=== PATIENT | female | born 1960 | race Caucasian/White ===

== ENCOUNTER 2017-02-12 07:37 | Day surgery (SDC) | payer OTHER ==
[2017-02-11 09:22] VITALS: BMI 47.8
[2017-02-12] MEDS ORDERED: BUPIVACAINE HCL/PF 2.5 MG/ML - 30 ML VIAL IJ ONE (08:28)
[2017-02-12] MEDS ORDERED: EPINEPHrine 1:1,000 1 MG/1 ML - 30ML VIAL (INJECTION) ONE (08:48)
[2017-02-12] MEDS ORDERED: ONDANSETRON 4 MG/2 ML VIAL ONE (10:36)
[2017-02-12] MEDS ORDERED: MIDAZOLAM HCL 2 MG/2 ML SINGLE DOSE VIAL ONE (10:36)
[2017-02-12] MEDS ORDERED: PROPOFOL 20 ML ONE (10:36)
[2017-02-12] MEDS ORDERED: DEXAMETHASONE SOD PHOSPHATE 4 MG/1 ML VIAL ONE (10:36)
[2017-02-12] MEDS ORDERED: LIDOCAINE HCL/PF 2% SDV 5ML VIAL ONE (10:36)
[2017-02-12] MEDS ORDERED: SUCCINYLCHOLINE CHLORIDE 200 MG/10 ML VIAL ONE (10:36)
[2017-02-12] MEDS ORDERED: methylPREDNISolone ACET (DEPO) 40 MG/1 ML VIAL ONE (11:36)
[2017-02-12] MEDS ORDERED: PROMETHAZINE HCL 25 MG/1 ML VIAL IVPUSH PRN (12:01)
[2017-02-12] MEDS ORDERED: ONDANSETRON 4 MG/2 ML VIAL IVPUSH PRN (12:01)
[2017-02-12] MEDS ORDERED: oxyCODONE HCL 5 MG TABLET PO PRN (12:01)
--- NOTE | 2017-02-12 12:01 | OP ---
Operative Note - Note: Operative Date: 02/12/17 Pre-Operative Diagnosis: Right knee partial medial meniscus tear. Right knee DJD Operation: 1. Surgical arthroscopy right knee. 2. Partial medial meniscectomy right knee. Right thigh tourniquet: 250mmHg x 23 minutes Findings: 1. Partial medial meniscus tear 2. 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
[2017-02-12] MEDS ORDERED: LACTATED RINGERS SOLUTION 1,000 ML IV SCH (12:15)
[2017-02-12] MEDS ORDERED: PATIENT'S OWN MEDICATION (NON-FORMULARY) (Cholecalciferol (Vitamin D3) [Vitamin D3] 50,000 PO SCH (12:15)
[2017-02-12] MEDS ORDERED: PATIENT'S OWN MEDICATION (NON-FORMULARY) (Ibandronate Sodium [Ibandronate Sodium] 150 MG) PO SCH (12:15)
[2017-02-12 15:45] VITALS: BP 128/77; PULSE 71; TEMP 97.9
--- NOTE | 2017-02-14 23:08 | OP ---
DATE OF OPERATION: February 12, 2017. SURGEON: Abran Soto M.D. RIDE MECHANIC: None. PREOPERATIVE DIAGNOSIS: 1. Right knee medial meniscus tear. 2. Right knee medial joint space arthritis. PREOPERATIVE DIAGNOSIS: 1. Right knee partial medial meniscus tear. 2. 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 SURGICAL PROCEDURE: 1. Surgical arthroscopy right knee. 2. Partial medial meniscectomy. 3. Chondroplasty medial femoral condyle. ANESTHESIA: Spinal and sedation. POSITION: Supine. INCISION: Standard anteromedial and anterolateral arthroscopy portals. ESTIMATED BLOOD LOSS: Minimal. INTRAVENOUS FLUIDS: 700 mL crystalloid. SPECIMENS: None. DRAINS: None. COMPLICATIONS: None. URINE OUTPUT: None. Bacteriology: None. TRANSFUSIONS: None. CLOSURE: 3-0 nylon. INDICATION: Patient is a 56-year-old female who was indicated for a surgical arthroscopy of the right knee with debridement in order to facilitate motion mobilization and to avoid the complications associated with a sedentary lifestyle. The patient was identified in the holding area by her arm band. A long conversation was held with the patient regarding the risks, benefits, and alternatives to the above-named procedure. Risks include but are not limited to: pain, bleeding, infection, damage to surrounding structures (including nerves, blood vessels, skin, ligaments, tendons, and bone), wound complications, need for further surgery, blood clots, myocardial infarction, pulmonary embolism, anesthesia complications, compartment syndrome, loss of function, limb loss, loss of function, and . Alternatives include no surgery. Benefits as mentioned. All questions answered. The patient understood and agreed to the procedure. Informed consent was obtained, witnessed and verified. The patient's correct operative limb--the right lower extremity--was marked. Patient was then taken to the operating room after being seen by the anesthesia and nursing staff. PROCEDURE: The patient was taken to the operating room, placed on the OR table and secured with a safety strap. Consent and the operative site was again verified with the patient and nursing and anesthesia staff. Anesthesia was then administered without complications, including the administration of 2 g of IV Ancef for antibiosis. Timeout was done led by me, the attending surgeon. The patient was positioned with all bony prominences well padded. A tourniquet was placed proximally on the right thigh and set to 250 mmHg. The right thigh was then secured in a leg reagan so that varus and valgus stress to the knee could be precisely controlled. The operative limb and site was then prepped and draped in a standard sterile fashion. Timeout was again done. The limb was exsanguinated using an Esmarch. The tourniquet was inflated and the case began. A standard anterolateral arthroscopy portal was planned over the lateral compartment of the right knee. A spinal needle was introduced into the lateral compartment of the right knee to confirm the intended incision site. A longitudinal incision was made after accurate placement of the 18-gauge spinal needle. The arthroscope was introduced into the middle of the knee via the anterolateral portal, and then as the knee was extended, delivered into the suprapatellar pouch. Next the knee was insufflated with sterile saline solution containing epinephrine for hemostasis. The patellofemoral joint was visualized, and no significant patellofemoral arthrosis was noted. Next, the arthroscope was delivered via the medial gutter, where no loose bodies were seen , into the medial compartment of the knee. The body and posterior horn of the medial meniscus were noted to be degenerative and torn. Next, gentle valgus stress was applied to the knee to open up the medial compartment and facilitate working within that space. Next an 18-gauge needle was used to triangulate precise intended placement of standard anteromedial arthroscopy portal. Following the removal of this 18-gauge needle, a standard longitudinal incision was made again using an 11- blade. A trocar was then introduced into the medial compartment of the right knee followed by a probe. The probe demonstrated the instability and extent of damage to the medial meniscus. Grade 2-3 chondromalacia of the medial femoral condyle was observed and further explored and demonstrated using the probe. Next a 3.5- mm shaver was introduced into the medial compartment of the right knee and was used to debride the degenerative and torn regions of the medial meniscus until achieving a stable peripheral rim with no obvious residual flap tears. This again was demonstrated with a probe. Loose chondral flaps overlying the medial femoral condyle were gentle also debrided using the shaver. Next the arthroscope was delivered into the middle of the knee where the ACL was identified and demonstrated to be stable using a probe. After this, gentle varus stress was applied to the knee, and the arthroscope was delivered into the lateral compartment of the right knee. There was no significant chondromalacia of the lateral femoral condyle nor the lateral tibial plateau noted, and there was no significant tear or degeneration of the lateral meniscus observed. Next the arthroscope was delivered into the lateral gutter of the knee, where again no loose bodies were seen. Thereafter the arthroscope was delivered into the suprapatellar pouch once again where 3 L of normal saline with epinephrine was used to irrigate the knee. At this point in time, inflow fluid was clamped and outflow suction was utilized to fully aspirate the knee. The arthroscope was then removed from the knee, and a 5-mL injection consisting of 4 mL of 0.25% Marcaine and 1 mL of Depo-Medrol 40 mg/mL were injected into the medial compartment of the right knee. Hemostasis was assured, and the wounds were closed primarily using 3-0 nylon suture in [id number] fashion. A sterile compressive dressing was applied. The sponge and needle counts were correct at the end of the case, and I, the attending surgeon, was present and scrubbed throughout the case. Tourniquet was then released at a final time of 23 minutes. The patient was extubated by the anesthesia staff without incident or complications and was then transferred to the recovery room in stable condition having tolerated procedure well. MD BOUCHRA Willoughby/[id number] MTDD
--- NOTE | 2017-02-16 12:50 | PATH ---
Surgical Pathology Report Patient Name: ROZINA MAI Med. Rec. #: [id number] /Age/Gender: 1960 (Age: 56) / F Account: [id number] Location: [facility] [place] [facility] Taken: 02/12/2017 Received: 02/12/2017 Reported: 02/16/2017 Physicians: Abran Soto M.D. Specimen(s) Received RIGHT KNEE SHAVINGS Clinical History Right medial meniscal tear Final Diagnosis KNEE, RIGHT, ARTHROSCOPIC SHAVING: FIBROCARTILAGE WITH MYXOID DEGENERATIVE CHANGES, ALONG WITH PORTIONS OF SYNOVIUM AND HYALINE CARTILAGE. Electronically Signed Asad Manuel M.D. Gross Description Received in formalin labeled "right knee shavings," is a 1.5 x 1.0 x 0.2 cm aggregate of roman soft tissue fragments. The formalin is filtered and the specimen is entirely submitted in one cassette. 02/15/201702/15/2017
== END 2017-02-12 15:40 | disposition home or self-care (01) ==
LOC: FASU 07:37
PROVIDERS: ATTEND Orthopaedic Surgery Adult Reconstructive Orthopaedic Surgery
PROC: 0SBC4ZZ Excision of Right Knee Joint, Percutaneous Endoscopic Approach (ICD-10-PCS; principal; 2017-02-12 09:30)
DX: S83.241A Other tear of medial meniscus, current injury, right knee, initial encounter (principal); M94.261 Chondromalacia, right knee; X58.XXXA Exposure to other specified factors, initial encounter; Y93.9 Activity, unspecified; Y92.9 Unspecified place or not applicable
CPT/HCPCS: 88304-TC; 94760; 97116-GP